=== PATIENT | male | born 1950 | race Caucasian/White ===

== ENCOUNTER 2023-04-02 08:22 | Outpatient (CLI) | payer MEDICARE, OTHER ==
[2023-04-02] MEDS ORDERED: Magnevist 469MG/ML 20 ML VIAL ONE (10:00)
== END 2023-04-02 08:23 | disposition home or self-care (01) ==
LOC: CSHMRI 08:22
PROVIDERS: ATTEND Urology
DX: C61 Malignant neoplasm of prostate (principal)
CPT/HCPCS: 72197; 82565